=== PATIENT | female | born 1990 | race Caucasian/White ===

== ENCOUNTER 2019-10-25 18:56 | Emergency (ER) | payer MEDICAID ==
[2019-10-25] MEDS ORDERED: Amoxicillin/Clavulanate K 875-125 MG Tab ONE (19:30)
[2019-10-25 21:59] VITALS: BP 143/97; PULSE 109
--- NOTE | 2019-11-13 00:38 | ER ---
HISTORY OF PRESENT ILLNESS: A 29-year-old lady who comes in with complaints of feeling feverish, somewhat achy. She has a red tender rash on the inner aspect of the right thigh. This all just started over the course of the day today. She noticed a lump in the skin in the one area as well. It is very tender. The patient denies any injury to this area. She denies any other symptoms such as shortness of breath, wheezing, or GI symptoms. OBJECTIVE: GENERAL APPEARANCE: The patient is awake and alert, no obvious distress. VITAL SIGNS: Reviewed. She is afebrile. Blood pressure 143/97. EXTREMITIES: Examining the patient's right leg reveals an erythematous maculopapular rash with several pustules on the dorsal aspect of the right foot and lower anterior leg just above the ankle. She also has an erythematous area on the medial side of the inner aspect of the right thigh. Part of this is slightly indurated and very tender with palpation and warm to touch. This is consistent with a cellulitis infection. DIAGNOSIS: Cellulitis. TREATMENT PLAN: Augmentin will be started. She is to go home and rest, apply warm packs regularly for 10 to 15 minutes every couple of hours while awake and follow up should be in a couple of days in the clinic. Followup should be sooner of course if her condition should get worse. TOM/SOLOMON /[id number]
== END 2019-10-25 20:00 | disposition home or self-care (01) ==
LOC: LB.ED 18:56
DX: L03.115 Cellulitis of right lower limb (principal)
CPT/HCPCS: 99283; A9270-GY